=== PATIENT | female | born 1995 | race Caucasian/White ===

== ENCOUNTER 2018-06-18 20:48 | Emergency (ER) | payer SELFPAY ==
[2018-06-18] MEDS ORDERED: Sodium Chloride 0.9% 10 ML Syringe FLUSH PRN (21:27)
[2018-06-18] MEDS ORDERED: Sodium Chloride 0.9% 500 ML IV ONE (21:28)
[2018-06-18] MEDS ORDERED: Metoclopramide 10 MG/2 ML SDV IVPUSH ONE (21:28)
[2018-06-18] MEDS ORDERED: Acetaminophen 325 MG Tab PO ONE (21:28)
--- NOTE | 2018-06-18 22:26 | EDM.PDOC ---
ED HPI GENERAL MEDICAL PROBLEM - General Chief Complaint: Headache Stated Complaint: HEADACHE/KEEPS BLACKING OUT Time Seen by Provider: 06/18/18 21:10 Source of Information: Reports: Patient, RN Notes Reviewed - History of Present Illness INITIAL COMMENTS - FREE TEXT/NARRATIVE: 22 year old female comes in with sx of intermitent dizzy spells that have been going on for about 1 year. she has had several in the last few day. Also has low abd/pelvic discomfort, decreased appetite. LMP about 8 to 10 days ago. Has had mild spotting the last few days. Mild voiding frequency and dysuria. has been nauseated, no recent vomiting or diarrhea. Also has moderate generalized nonthrobbing Jones. No recent cough, fever, chills. Headache Pain Score (Numeric/FACES): 8 - Related Data Allergies Allergy/AdvReac Type Severity Reaction Status Date / Time No Known Allergies Allergy Verified 06/18/18 20:55 Home Meds: Home Meds Aspirin/Acetaminophen/Caffeine [Migraine Formula Caplet] 1 tab PO ONCALL PRN 08/03 [History] Past Medical History - Past Health History Medical/Surgical History: Denies Medical/Surgical History [employer] History: Reports: Social & Family History - Tobacco Use Smoking Status *Q: Current Every Day Smoker Years of Tobacco use: 4 Packs/Tins Daily: 0.2 - Recreational Drug Use Recreational Drug Use: No ED ROS GENERAL - Review of Systems Review Of Systems: See Below Constitutional: Denies: Fever, Chills, Diaphoresis HEENT: Denies: Rhinitis, Sinus Problem, Throat Pain Respiratory: Denies: Shortness of Breath, Wheezing Cardiovascular: Reports: Lightheadedness. Denies: Chest Pain, Palpitations GI/Abdominal: Reports: Abdominal Pain, Decreased Appetite, Nausea. Denies: Diarrhea, Vomiting Musculoskeletal: Reports: No Symptoms Skin: Reports: No Symptoms Neurological: Reports: Dizziness, Headache. Denies: Trouble Speaking, Difficulty Walking, Weakness ED EXAM, GI/ABD - Physical Exam Exam: See Below General Appearance: Alert, No Apparent Distress Eyes: Bilateral: Normal Appearance Throat/Mouth: Normal Inspection, Normal Oropharynx Head: Atraumatic. No: Facial Swelling Neck: Supple, Full Range of Motion Respiratory/Chest: No Respiratory Distress, Lungs Clear, Normal Breath Sounds Cardiovascular: Regular Rate, Rhythm GI/Abdominal Exam: Soft, Tender (very mild diffuse tenderness lower abd more on the left). No: Guarding, Rebound Back Exam: No: CVA Tenderness (L), CVA Tenderness (R) Extremities: Normal Inspection, Normal Range of Motion Neurological: Alert, Oriented, No Motor/Sensory Deficits Skin Exam: Warm, Dry, Normal Color Course - Vital Signs Last Recorded V/S: Last Vital Signs Temp 98.0 F 06/18/18 20:56 Pulse 97 06/18/18 20:56 Resp 18 06/18/18 20:56 BP 128/74 06/18/18 20:56 Pulse Ox 100 06/18/18 20:56 - Orders/Labs/Meds Orders: Active Orders 24 hr Category Date Time Status Holter Monitor 48 Hours [] .PRN Care 06/18/18 22:35 Active Peripheral IV Care [] . DIRECTED Care 06/18/18 21:28 Active Ketorolac [Toradol] Med 06/18/18 22:45 Active 30 mg IVPUSH ONETIME Sodium Chloride 0.9% [Saline Flush] Med 06/18/18 21:27 Active 10 ml FLUSH ASDIRECTED PRN Peripheral IV Insertion Adult [OM.PC] Stat Oth 06/18/18 21:28 Ordered Medication Orders Ketorolac Tromethamine (Toradol) 30 mg IVPUSH ONETIME [facility] Last Admin: 06/18/18 22:45 Dose: 30 mg Sodium Chloride (Saline Flush) 10 ml FLUSH ASDIRECTED PRN PRN Reason: Keep Vein Open Last Admin: 06/18/18 21:57 Dose: 10 ml Labs: Laboratory Tests 06/18/18 06/18/18 06/18/18 Range/Units 21:45 21:45 21:53 WBC 7.54 (3.98-10.04) K/mm3 RBC 5.36 H (3.98-5.22) M/mm3 Hgb 14.6 (11.2-15.7) gm/L Hct 45.0 H (34.1-44.9) % MCV 84.0 (79.4-94.8) fl MCH 27.2 (25.6-32.2) pg MCHC 32.4 (32.2-35.5) g/dl RDW Std Deviation 49.3 H (36.4-46.3) fL Plt Count 272 (182-369) K/mm3 MPV 10.9 (9.4-12.3) fl Neut % (Auto) 50.4 (34.0-71.1) % Lymph % (Auto) 39.8 (19.3-51.7) % [place] % (Auto) 8.1 (4.7-12.5) % Eos % (Auto) 1.3 (0.7-5.8) Baso % (Auto) 0.3 (0.1-1.2) % Neut # (Auto) 3.80 (1.56-6.13) K/mm3 Lymph # (Auto) 3.00 (1.18-3.74) K/mm3 [place] # (Auto) 0.61 H (0.24-0.36) K/mm3 Eos # (Auto) 0.10 (0.04-0.36) K/mm3 Baso # (Auto) 0.02 (0.01-0.08) K/mm3 Sodium 143 (136-145) mEq/L Potassium 4.3 (3.5-5.1) mEq/L Chloride 105 (98-107) mEq/L Carbon Dioxide 29 (21-32) mEq/L Anion Gap 13.3 (5-15) BUN 11 (7-18) mg/dL Creatinine 1.0 (0.55-1.02) mg/dL Est Cr Clr Drug Dosing 75.83 mL/min Estimated GFR (MDRD) > 60 (>60) mL/min BUN/Creatinine Ratio 11.0 L (14-18) Glucose 85 (74-106) mg/dL Calcium 9.4 (8.5-10.1) mg/dL Total Bilirubin 0.2 (0.2-1.0) mg/dL AST 28 (15-37) U/L ALT 40 (14-59) U/L Alkaline Phosphatase 83 (46-116) U/L Total Protein 7.4 (6.4-8.2) g/dl Albumin 3.6 (3.4-5.0) g/dl Globulin 3.8 gm/dL Albumin/Globulin Ratio 1.0 (1-2) HCG, Qual (NEGATIVE) Urine Color Yellow (Yellow) Urine Appearance Clear (Clear) Urine pH 7.0 (5.0-8.0) Ur Specific [place] 1.020 (1.005-1.030) Urine Protein Trace H (Negative) Urine Glucose (UA) Negative (Negative) Urine Ketones Negative (Negative) Urine Occult Blood Negative (Negative) Urine Nitrite Negative (Negative) Urine Bilirubin Negative (Negative) Urine Urobilinogen 0.2 (0.2-1.0) Ur Leukocyte Esterase Negative (Negative) Urine RBC 0-5 (0-5) /hpf Urine WBC 0-5 (0-5) /hpf Ur Epithelial Cells 0-5 (0-5) /hpf Urine Bacteria Rare (FEW) /hpf Urine Mucus Not seen (FEW) /hpf 06/18/18 Range/Units 21:53 WBC (3.98-10.04) K/mm3 RBC (3.98-5.22) M/mm3 Hgb (11.2-15.7) gm/L Hct (34.1-44.9) % MCV (79.4-94.8) fl MCH (25.6-32.2) pg MCHC (32.2-35.5) g/dl RDW Std Deviation (36.4-46.3) fL Plt Count (182-369) K/mm3 MPV (9.4-12.3) fl Neut % (Auto) (34.0-71.1) % Lymph % (Auto) (19.3-51.7) % [place] % (Auto) (4.7-12.5) % Eos % (Auto) (0.7-5.8) Baso % (Auto) (0.1-1.2) % Neut # (Auto) (1.56-6.13) K/mm3 Lymph # (Auto) (1.18-3.74) K/mm3 [place] # (Auto) (0.24-0.36) K/mm3 Eos # (Auto) (0.04-0.36) K/mm3 Baso # (Auto) (0.01-0.08) K/mm3 Sodium (136-145) mEq/L Potassium (3.5-5.1) mEq/L Chloride (98-107) mEq/L Carbon Dioxide (21-32) mEq/L Anion Gap (5-15) BUN (7-18) mg/dL Creatinine (0.55-1.02) mg/dL Est Cr Clr Drug Dosing mL/min Estimated GFR (MDRD) (>60) mL/min BUN/Creatinine Ratio (14-18) Glucose (74-106) mg/dL Calcium (8.5-10.1) mg/dL Total Bilirubin (0.2-1.0) mg/dL AST (15-37) U/L ALT (14-59) U/L Alkaline Phosphatase (46-116) U/L Total Protein (6.4-8.2) g/dl Albumin (3.4-5.0) g/dl Globulin gm/dL Albumin/Globulin Ratio (1-2) HCG, Qual Negative (NEGATIVE) Urine Color (Yellow) Urine Appearance (Clear) Urine pH (5.0-8.0) Ur Specific [place] (1.005-1.030) Urine Protein (Negative) Urine Glucose (UA) (Negative) Urine Ketones (Negative) Urine Occult Blood (Negative) Urine Nitrite (Negative) Urine Bilirubin (Negative) Urine Urobilinogen (0.2-1.0) Ur Leukocyte Esterase (Negative) Urine RBC (0-5) /hpf Urine WBC (0-5) /hpf Ur Epithelial Cells (0-5) /hpf Urine Bacteria (FEW) /hpf Urine Mucus (FEW) /hpf Meds: Medications Generic Name Dose Route Start Last Admin Trade Name Freyamel PRN Reason Stop Dose Admin Ketorolac Tromethamine 30 mg 06/18/18 22:45 06/18/18 22:45 Toradol IVPUSH 30 mg ONETIME [facility] Administration Sodium Chloride 10 ml 06/18/18 21:27 06/18/18 21:57 Saline Flush FLUSH 10 ml ASDIRECTED PRN Administration Keep Vein Open Discontinued Medications Generic Name Dose Route Start Last Admin Trade Name Freyamel PRN Reason Stop Dose Admin Acetaminophen 975 mg 06/18/18 21:28 06/18/18 21:56 Tylenol PO 06/18/18 21:29 975 mg NOW ONE Administration Sodium Chloride 500 mls @ 999 mls/hr 06/18/18 21:28 06/18/18 21:56 Normal Saline IV 06/18/18 21:58 999 mls/hr .BOLUS ONE Administration Metoclopramide HCl 5 mg 06/18/18 21:28 06/18/18 21:56 Reglan IVPUSH 06/18/18 21:29 5 mg ONETIME ONE Administration - Re-Assessments/Exams Free Text/Narrative Re-Assessment/Exam: 06/18/18 22:56 Labs did come back normal, UA preg. test normal. cardiac moniter shows NSR, no ectopy. She feels better after 1/2 liter NS, tylenol, reglan. Will also give torodol IV and send home with 48 holter moniter. Departure - Departure Time of Disposition: 22:46 Disposition: Home, Self-Care 01 Condition: Fair Clinical Impression: Near syncope Abdominal pain Qualifiers: Abdominal location: lower abdomen, unspecified Qualified Code(s): R10.30 - Lower abdominal pain, unspecified Headache Qualifiers: Headache type: unspecified Headache chronicity pattern: acute headache - Discharge Information Referrals: PCP,None [Primary Care Provider] - Forms: ED Department Discharge Additional Instructions: Your lab work including UA this evening was normal. 48 hour holter moniter to check for possible cardiac rythm disturbance, Drink plenty of water to maintain hydration. If you do have a dizzy spell and feel like passing out get your head down or lie down so you don't pass out. Follow up with one of our regular medical providers in about 5 to 7 days for complete physical exam, results of 48 hour holter moniter, further evaluation, treatment as needed. Return to ED if symptoms worsening in any way. - My Orders Last 24 Hours: My Active Orders 06/18/18 21:27 Sodium Chloride 0.9% [Saline Flush] 10 ml FLUSH ASDIRECTED PRN 06/18/18 21:28 Peripheral IV Care [RC] . DIRECTED Peripheral IV Insertion Adult [OM.PC] Stat 06/18/18 22:35 Holter Monitor 48 Hours [RC] .PRN 06/18/18 22:45 Ketorolac [Toradol] 30 mg IVPUSH ONETIME - Assessment/Plan Last 24 Hours: My Active Orders 06/18/18 21:27 Sodium Chloride 0.9% [Saline Flush] 10 ml FLUSH ASDIRECTED PRN 06/18/18 21:28 Peripheral IV Care [RC] . DIRECTED Peripheral IV Insertion Adult [OM.PC] Stat 06/18/18 22:35 Holter Monitor 48 Hours [RC] .PRN 06/18/18 22:45 Ketorolac [Toradol] 30 mg IVPUSH ONETIME
[2018-06-18] MEDS ORDERED: Ketorolac 30 MG/ML SDV IVPUSH SCH (22:45)
== END 2018-06-18 23:06 | disposition home or self-care (01) ==
LOC: JD.ED 20:48
DX: R55 Syncope and collapse (principal); R51 Headache; R10.32 Left lower quadrant pain; F17.210 Nicotine dependence, cigarettes, uncomplicated
CPT/HCPCS: 36415; 80053; 81001; 84703; 85025; 93225; 93226; 96361; 96374; 96375; 99284; A9270; J1885; J2765; J7040

== ENCOUNTER 2019-05-27 15:11 | Emergency (ER) | payer BC ==
[2019-05-27] MEDS ORDERED: Ketorolac 60 MG/2 ML SDV IM ONE (17:08)
--- NOTE | 2019-05-27 17:17 | EDM.PDOC ---
ED HPI GENERAL MEDICAL PROBLEM - General Chief Complaint: ENT Problem Stated Complaint: TOOTHACHE Time Seen by Provider: 05/27/19 15:58 Source of Information: Reports: Patient History Limitations: Reports: No Limitations - History of Present Illness INITIAL COMMENTS - FREE TEXT/NARRATIVE: Patient is a 23-year-old female who presents with complaints of left upper jaw pain and a broken tooth. States she has had the pain for "a couple weeks ". She states that her wisdom tooth is coming in and the pressure from that tooth broke the tooth next to it. States that she will be calling around to the morning try to get an appointment with a dentist either [place] or in [place]. She denies any fever, chills, nausea, or vomiting. Treatments FURNACE ATTENDANT: Reports: Other (see below) Other Treatments FURNACE ATTENDANT: aleve Left Upper Jaw Pain Score (Numeric/FACES): 10 - Related Data Allergies Allergy/AdvReac Type Severity Reaction Status Date / Time No Known Allergies Allergy Verified 05/27/19 15:59 Home Meds: Home Meds Acetaminophen with Codeine [Tylenol with Codeine #3 Tablet] 1 each PO Q4H PRN # 10 tablet 05/27/19 [Rx] Penicillin V Potassium [Veetids] 500 mg PO Q6H 10 Days #40 tab 05/27/19 [Rx] Past Medical History - Past Health History Medical/Surgical History: Denies Medical/Surgical History [employer] History: Reports: Social & Family History - Tobacco Use Smoking Status *Q: Current Every Day Smoker Years of Tobacco use: 5 Packs/Tins Daily: 0.4 Used Tobacco, but Quit: No - Caffeine Use Caffeine Use: Reports: Coffee - Recreational Drug Use Recreational Drug Use: No ED ROS ENT - Review of Systems Review Of Systems: Comprehensive ROS is negative, except as noted in HPI. ED EXAM, ENT - Physical Exam Exam: See Below Exam Limited By: No Limitations General Appearance: Alert, WD/WN, No Apparent Distress Mouth/Throat: Normal Inspection, Normal Gums, Normal Lips, Normal Oropharynx, Dental Pain, Other (posterior aspect of tooth #2 broken. Pt has left facial tenderness). No: Gum Swelling Head: Atraumatic, Normocephalic Neck: Normal Inspection, Supple, Non-Tender, Full Range of Motion Respiratory/Chest: No Respiratory Distress, Lungs Clear, Normal Breath Sounds, No Accessory Muscle Use, Chest Non-Tender Cardiovascular: Normal Peripheral Pulses, Regular Rate, Rhythm, No Edema, No Gallop, No JVD, No Murmur, No Rub Neurological: Alert, Oriented, CN II-XII Intact, Normal Cognition, Normal Gait, Normal Reflexes, No Motor/Sensory Deficits Psychiatric: Normal Affect, Normal Mood Skin: Warm, Dry, Intact, Normal Color, No Rash Course - Vital Signs Last Recorded V/S: Last Vital Signs Temp 98.9 F 05/27/19 16:00 Pulse 80 05/27/19 16:00 Resp 16 05/27/19 16:00 BP 109/58 L 05/27/19 16:00 Pulse Ox 99 05/27/19 16:00 - Orders/Labs/Meds Orders: Active Orders 24 hr Category Date Time Status Ketorolac [Toradol] Med 05/27/19 17:08 Once 60 mg IM ONETIME ONE Departure - Departure Time of Disposition: 17:12 Disposition: Home, Self-Care 01 Condition: Fair Clinical Impression: Dental caries - Discharge Information *PRESCRIPTION DRUG MONITORING PROGRAM REVIEWED*: Yes *COPY OF PRESCRIPTION DRUG MONITORING REPORT IN PATIENT JUSTINA: No Prescriptions: Acetaminophen with Codeine [Tylenol with Codeine #3 Tablet] 1 each PO Q4H PRN # 10 tablet PRN Reason: Pain Penicillin V Potassium [Veetids] 500 mg PO Q6H 10 Days #40 tab Instructions: Preventive Dental Care, Adult Referrals: PCP,None [Primary Care Provider] - Additional Instructions: You were seen in the emergency department today for left-sided jaw and tooth pain. You received an injection of Toradol while in the ER. A prescription for penicillin V and Tylenol 3's have been sent to [facility]. Uses medications as prescribed. Recommend that you take ibuprofen 600 mg every 6 hours for pain. For pain not relieved by the ibuprofen, you may use the Tylenol 3 that were prescribed. Recommend that you call for seen tomorrow morning to get an appointment with the dentist as this is the only thing that will completely fix the problem. If you should experience any worsening symptoms, please not hesitate to return to the emergency department. Sepsis Event Note - Evaluation Sepsis Screening Result: No Definite Risk - Focused Exam Vital Signs: Vital Signs Temp Pulse Resp BP Pulse Ox 05/27/19 16:00 98.9 F 80 16 109/58 L 99 Date Exam was Performed: 05/27/19 Time Exam was Performed: 17:09 - My Orders Last 24 Hours: My Active Orders 05/27/19 17:08 Ketorolac [Toradol] 60 mg IM ONETIME ONE - Assessment/Plan Last 24 Hours: My Active Orders 05/27/19 17:08 Ketorolac [Toradol] 60 mg IM ONETIME ONE
== END 2019-05-27 17:25 | disposition home or self-care (01) ==
LOC: JD.ED 15:11
DX: K02.9 Dental caries, unspecified (principal); F17.210 Nicotine dependence, cigarettes, uncomplicated
CPT/HCPCS: 96372; 99282; J1885; 99283

== ENCOUNTER 2019-10-17 10:05 | Emergency (ER) | payer BC ==
--- NOTE | 2019-10-17 10:31 | EDM.PDOCBH ---
ED HPI GENERAL MEDICAL PROBLEM - General Chief Complaint: Behavioral/Psych Stated Complaint: SUICIDAL IDEATIONS/ATTEMPTS Time Seen by Provider: 10/17/19 10:29 - History of Present Illness INITIAL COMMENTS - FREE TEXT/NARRATIVE: 24-year-old female presents the emergency room with suicidal thoughts. Patient was seen over at [facility] and sent here by the provider that saw her for evaluation, and stating the patient would like inpatient treatment. Patient is been having suicidal thoughts. She had a vague attempt about a month ago but was not seen for this. Patient tried to slit her wrist but her friend stopped her. At this time the patient does not have a suicidal plan. Patient states she does okay as long as she is with people but when she is by her self the suicidal thoughts come back. The patient does not believe she would actually hurt herself at this time. The patient has been admitted for suicidal thoughts in the distant past approximately a year or so ago. She is not on any depression medications at this time she has taken Xanax as needed for anxiety. Patient denies any ongoing medical issues that she has. She is a 4 para 1 3 miscarriages. 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: Musculoskeletal History: Reports: Other (See Below) Other Musculoskeletal History: hip dysplagia Psychiatric History: Reports: Anxiety, Depression Social & Family History - Tobacco Use Smoking Status *Q: Current Every Day Smoker Years of Tobacco use: 3 Packs/Tins Daily: 0.5 - Caffeine Use Caffeine Use: Reports: Coffee - Recreational Drug Use Recreational Drug Use: No ED ROS GENERAL - Review of Systems Review Of Systems: See Below Constitutional: Reports: No Symptoms HEENT: Reports: No Symptoms Respiratory: Reports: No Symptoms Cardiovascular: Reports: No Symptoms Endocrine: Reports: No Symptoms GI/Abdominal: Reports: No Symptoms : Reports: No Symptoms Musculoskeletal: Reports: No Symptoms Skin: Reports: No Symptoms Neurological: Reports: No Symptoms Psychiatric: Reports: Anxiety, Depression, Suicidal Ideation. Denies: Hallucinations, Homicidal Ideation, Mood Lability Hematologic/Lymphatic: Reports: No Symptoms ED EXAM, BEHAVIORAL HEALTH - Physical Exam Exam: See Below Exam Limited By: No Limitations General Appearance: Alert, No Apparent Distress Eye Exam: Bilateral Eye: Normal Inspection Ears: Normal External Exam, Normal Canal, Hearing Grossly Normal, Normal TMs Nose: Normal Inspection, Normal Mucosa, No Blood Throat/Mouth: Normal Inspection, Normal Lips, Normal Teeth, Normal Gums, Normal Oropharynx, Normal Voice, No Airway Compromise Head: Atraumatic, Normocephalic Neck: Normal Inspection, Supple, Non-Tender, Full Range of Motion. No: Lymphadenopathy (L), Lymphadenopathy (R) Respiratory/Chest: No Respiratory Distress, Lungs Clear, Normal Breath Sounds, No Accessory Muscle Use, Chest Non-Tender Cardiovascular: Normal Peripheral Pulses, Regular Rate, Rhythm, No Edema, No Gallop, No JVD, No Murmur, No Rub GI/Abdominal: Normal Bowel Sounds, Soft, Non-Tender Back Exam: Normal Inspection. No: CVA Tenderness (L), CVA Tenderness (R) Extremities: Normal Inspection, No Pedal Edema Neurological: Alert, Normal Mood/Affect, Normal Cognition Psychiatric: Alert, Normal Cognition, Suicidal Thoughts, Other (Acting fairly normal normal affect, mood no apparent anxiety at this time). No: Suicidal Plan Skin Exam: Warm, Dry, Intact COURSE, BEHAVIORAL HEALTH COMP - Course Vital Signs: Last Vital Signs Temp 37.5 C 10/17/19 10:12 Pulse 81 10/17/19 10:12 Resp 16 10/17/19 10:12 BP 109/70 10/17/19 10:12 Pulse Ox 98 10/17/19 10:12 Orders, Labs, Meds: Laboratory Tests 10/17/19 10/17/19 10/17/19 Range/Units 11:00 11:00 11:15 WBC 7.60 (3.98-10.04) K/mm3 RBC 5.01 (3.98-5.22) M/mm3 Hgb 13.7 (11.2-15.7) gm/dl Hct 42.7 (34.1-44.9) % MCV 85.2 (79.4-94.8) fl MCH 27.3 (25.6-32.2) pg MCHC 32.1 L (32.2-35.5) g/dl RDW Std Deviation 46.5 H (36.4-46.3) fL Plt Count 268 (182-369) K/mm3 MPV 9.8 (9.4-12.3) fl Neut % (Auto) 64.3 (34.0-71.1) % Lymph % (Auto) 27.0 (19.3-51.7) % [place] % (Auto) 7.2 (4.7-12.5) % Eos % (Auto) 1.1 (0.7-5.8) Baso % (Auto) 0.3 (0.1-1.2) % Neut # (Auto) 4.89 (1.56-6.13) K/mm3 Lymph # (Auto) 2.05 (1.18-3.74) K/mm3 [place] # (Auto) 0.55 H (0.24-0.36) K/mm3 Eos # (Auto) 0.08 (0.04-0.36) K/mm3 Baso # (Auto) 0.02 (0.01-0.08) K/mm3 Sodium 140 (136-145) mEq/L Potassium 4.3 (3.5-5.1) mEq/L Chloride 104 (98-107) mEq/L Carbon Dioxide 27 (21-32) mEq/L Anion Gap 13.3 (5-15) BUN 12 (7-18) mg/dL Creatinine 0.8 (0.55-1.02) mg/dL Est Cr Clr Drug Dosing 97.15 mL/min Estimated GFR (MDRD) > 60 (>60) mL/min BUN/Creatinine Ratio 15.0 (14-18) Glucose 65 L (74-106) mg/dL Calcium 9.0 (8.5-10.1) mg/dL Total Bilirubin 0.3 (0.2-1.0) mg/dL AST 31 (15-37) U/L ALT 50 (14-59) U/L Alkaline Phosphatase 67 (46-116) U/L Total Protein 7.3 (6.4-8.2) g/dl Albumin 3.4 (3.4-5.0) g/dl Globulin 3.9 gm/dL Albumin/Globulin Ratio 0.9 L (1-2) TSH 3rd Generation 2.542 (0.358-3.74) uIU/mL Urine Color Light yellow (Yellow) Urine Appearance Clear (Clear) Urine pH 7.0 (5.0-8.0) Ur Specific [place] 1.025 (1.005-1.030) Urine Protein Negative (Negative) Urine Glucose (UA) Negative (Negative) Urine Ketones Negative (Negative) Urine Occult Blood Negative (Negative) Urine Nitrite Negative (Negative) Urine Bilirubin Negative (Negative) Urine Urobilinogen 0.2 (0.2-1.0) Ur Leukocyte Esterase Negative (Negative) Urine HCG, Qual (NEGATIVE) Urine Opiates Screen (KETKWX=576) Ur Buprenorphine Scrn (CUTOFF=10) Ur Oxycodone Screen (GAY9PF=024) Urine Methadone Screen (ZZKDHW=153) Ur Propoxyphene Screen (JVOYNE=974) Ur Barbiturates Screen (JFUAUL=892) Ur Tricyclics Screen (GJWFDL=124) Ur Phencyclidine Scrn (CUTOFF=25) Ur Amphetamine Screen (NHPTRO=597) U Methamphetamines Scrn (MHSHEE=587) U Benzodiazepines Scrn (UZXHCD=176) U Cocaine Metab Screen (VLOAJJ=783) U Marijuana (THC) Screen (CUTOFF=50) Ethyl Alcohol 0.00 (0.00) gm% 10/17/19 10/17/19 Range/Units 11:15 11:15 WBC (3.98-10.04) K/mm3 RBC (3.98-5.22) M/mm3 Hgb (11.2-15.7) gm/dl Hct (34.1-44.9) % MCV (79.4-94.8) fl MCH (25.6-32.2) pg MCHC (32.2-35.5) g/dl RDW Std Deviation (36.4-46.3) fL Plt Count (182-369) K/mm3 MPV (9.4-12.3) fl Neut % (Auto) (34.0-71.1) % Lymph % (Auto) (19.3-51.7) % [place] % (Auto) (4.7-12.5) % Eos % (Auto) (0.7-5.8) Baso % (Auto) (0.1-1.2) % Neut # (Auto) (1.56-6.13) K/mm3 Lymph # (Auto) (1.18-3.74) K/mm3 [place] # (Auto) (0.24-0.36) K/mm3 Eos # (Auto) (0.04-0.36) K/mm3 Baso # (Auto) (0.01-0.08) K/mm3 Sodium (136-145) mEq/L Potassium (3.5-5.1) mEq/L Chloride (98-107) mEq/L Carbon Dioxide (21-32) mEq/L Anion Gap (5-15) BUN (7-18) mg/dL Creatinine (0.55-1.02) mg/dL Est Cr Clr Drug Dosing mL/min Estimated GFR (MDRD) (>60) mL/min BUN/Creatinine Ratio (14-18) Glucose (74-106) mg/dL Calcium (8.5-10.1) mg/dL Total Bilirubin (0.2-1.0) mg/dL AST (15-37) U/L ALT (14-59) U/L Alkaline Phosphatase (46-116) U/L Total Protein (6.4-8.2) g/dl Albumin (3.4-5.0) g/dl Globulin gm/dL Albumin/Globulin Ratio (1-2) TSH 3rd Generation (0.358-3.74) uIU/mL Urine Color (Yellow) Urine Appearance (Clear) Urine pH (5.0-8.0) Ur Specific [place] (1.005-1.030) Urine Protein (Negative) Urine Glucose (UA) (Negative) Urine Ketones (Negative) Urine Occult Blood (Negative) Urine Nitrite (Negative) Urine Bilirubin (Negative) Urine Urobilinogen (0.2-1.0) Ur Leukocyte Esterase (Negative) Urine HCG, Qual Negative (NEGATIVE) Urine Opiates Screen Negative (PNQNBT=080) Ur Buprenorphine Scrn Negative (CUTOFF=10) Ur Oxycodone Screen Negative (EHH6SL=083) Urine Methadone Screen Negative (CRNFJM=716) Ur Propoxyphene Screen Negative (TPMHUQ=994) Ur Barbiturates Screen Negative (GTAMXY=534) Ur Tricyclics Screen Negative (AQOVXX=349) Ur Phencyclidine Scrn Negative (CUTOFF=25) Ur Amphetamine Screen Negative (ZULGFS=714) U Methamphetamines Scrn Negative (TKEVAP=794) U Benzodiazepines Scrn Presumptive positive H (RDXCBB=538) U Cocaine Metab Screen Negative (NYDGWI=392) U Marijuana (THC) Screen Presumptive positive H (CUTOFF=50) Ethyl Alcohol (0.00) gm% Medications Discontinued Medications Generic Name Dose Route Start Last Admin Trade Name Giselle PRN Reason Stop Dose Admin Alprazolam 1 mg 10/17/19 12:58 10/17/19 13:05 Xanax PO 10/17/19 12:59 1 mg ONETIME ONE Administration Lorazepam 1 mg 10/17/19 12:57 Ativan PO 10/17/19 12:58 ONETIME ONE Re-Assessment/Re-Exam: Did discuss the patient's case with Angela at [facility] who thought the patient would be a candidate for the crisis bed. We will notify them when the labs are complete. 12:51 Labs reviewed positive for benzodiazepines she does use as needed Xanax she is also positive for marijuana I have called Angela at [facility] and am awaiting for return call. 13:02 Discussed the situation with Angela. The patient is a little anxious at this time but promises to go right over to [facility] and her significant other promises to take her right over. The patient took her last Xanax this morning I will give them a refill. I also have given her a milligram of Xanax at this time. Departure - Departure Time of Disposition: 13:07 Disposition: Home, Self-Care 01 Clinical Impression: Depressive disorder, Anxiety, Suicidal ideation - Discharge Information Prescriptions: ALPRAZolam [Xanax] 0.5 mg PO Q12H #14 tablet Referrals: PCP,None [Primary Care Provider] - Forms: ED Department Discharge Additional Instructions: Return to the emergency room with any questions problems or worsening symptoms. Go straight to [facility] human services as we agreed you would do. I have refilled your Xanax for 1 week 0.5 mg twice daily this has been sent to [facility] up by [place]. Sepsis Event Note (ED) - Evaluation Sepsis Screening Result: No Definite Risk - Focused Exam Vital Signs: Vital Signs Temp Pulse Resp BP Pulse Ox 10/17/19 10:12 37.5 C 81 16 109/70 98
[2019-10-17] MEDS ORDERED: LORazepam 1 MG Tab PO ONE (12:57)
[2019-10-17] MEDS ORDERED: ALPRAZolam 1 MG Tab PO ONE (12:58)
== END 2019-10-17 13:25 | disposition home or self-care (01) ==
LOC: JD.ED 10:05
DX: F32.9 Major depressive disorder, single episode, unspecified (principal); F41.9 Anxiety disorder, unspecified; F17.210 Nicotine dependence, cigarettes, uncomplicated; Z79.899 Other long term (current) drug therapy
CPT/HCPCS: 36415; 80053; 80306; 80307; 81003; 81025; 84443; 85025; 99284; A9270; 99283

== ENCOUNTER 2020-02-15 18:27 | Emergency (ER) | payer BC ==
[2020-02-15] MEDS ORDERED: Sodium Chloride 0.9% 10 ML Syringe FLUSH PRN (18:47)
--- NOTE | 2020-02-15 19:03 | EDM.PDOC ---
ED HPI GENERAL MEDICAL PROBLEM - General Chief Complaint: INSURANCE PREMIUM AUDITOR Problem Stated Complaint: 16 WEEKS PREG AND BLEEDING Time Seen by Provider: 02/15/20 18:49 Source of Information: Reports: Patient, RN Notes Reviewed History Limitations: Reports: No Limitations - History of Present Illness INITIAL COMMENTS - FREE TEXT/NARRATIVE: Patient is a 24-year-old female who presents to the ED for the evaluation of her lower abdomen cramping and light vaginal bleeding. She is 16 weeks . She notes that she follows with Dr. Garland as her INSURANCE PREMIUM AUDITOR. She states that her last OB appointment on February 12, went well and there were no complications. She states that today she was sitting on her couch, and she began to have some cramping, so she thought that she was may be needing to have a bowel movement she went to the bathroom, and when she went to wipe she had some bright red blood on the toilet paper. This was all at around 6:20 PM. She further denies any fevers or chills, cough or shortness of breath, any urinary issues, or any diarrhea, she states she is usually nauseous due to the but is not nauseated now. She is also not having any vomiting. She is not complaining of any dizziness or lightheadedness. heart tones were found to be 156 bpm on triage. Left Lower Abdomen Pain Score (Numeric/FACES): 4 - Related Data Allergies Allergy/AdvReac Type Severity Reaction Status Date / Time No Known Allergies Allergy Verified 02/15/20 18:43 Home Meds: Home Meds Acetaminophen [Tylenol Extra Strength] 500 mg PO DAILY 02/15/20 [History] Ondansetron [Zofran ODT] 4 mg PO Q4HR PRN 02/15/20 [History] Past Medical History - Past Health History Medical/Surgical History: Denies Medical/Surgical History HEENT History: Reports: Impaired Vision Other HEENT History: glasses INSURANCE PREMIUM AUDITOR History: Reports: : 2 Para: 1 Other INSURANCE PREMIUM AUDITOR History: 2 pregnancies Musculoskeletal History: Reports: Other (See Below) Other Musculoskeletal History: hip dysplagia Psychiatric History: Reports: Anxiety, Depression Social & Family History - Tobacco Use Tobacco Use Status *Q: Former Tobacco User Used Tobacco, but Quit: Yes Month/Year Tobacco Last Used: 09/2019 - Caffeine Use Caffeine Use: Reports: Coffee - Recreational Drug Use Recreational Drug Use: No ED ROS GENERAL - Review of Systems Review Of Systems: Comprehensive ROS is negative, except as noted in HPI. ED EXAM - Physical Exam Exam: See Below Exam Limited By: No Limitations General Appearance: Alert, WD/WN, No Apparent Distress Respiratory/Chest: No Respiratory Distress, Lungs Clear, Normal Breath Sounds, No Accessory Muscle Use, Chest Non-Tender Cardiovascular: Normal Peripheral Pulses, Regular Rate, Rhythm, No Murmur GI/Abdominal Exam: Normal Bowel Sounds, Soft, Non-Tender, No Distention, No Mass Heart Tones: Present Heart Tones per Min: 156 Movement: Not Appreciated Extremities: Normal Inspection, Normal Capillary Refill Neurological: Alert, Oriented, Normal Cognition, No Motor/Sensory Deficits Psychiatric: Normal Affect, Normal Mood Skin Exam: Warm, Dry, Intact, Normal Color, No Rash Course - Vital Signs Last Recorded V/S: Last Vital Signs Temp 98 F 02/15/20 18:38 Pulse 106 H 02/15/20 18:38 Resp 20 02/15/20 18:38 BP 107/66 02/15/20 18:38 Pulse Ox 99 02/15/20 18:38 - Orders/Labs/Meds Orders: Active Orders 24 hr Category Date Time Status Peripheral IV Care [RC] . DIRECTED Care 02/15/20 18:48 Ordered OB Ltd 1 or More Fetus [US] Stat Exams 02/15/20 18:48 Ordered PATIENT RETYPE [BBK] Routine Lab 02/15/20 20:11 Ordered Sodium Chloride 0.9% [Saline Flush] Med 02/15/20 18:47 Ordered 10 ml FLUSH ASDIRECTED PRN Peripheral IV Insertion Adult [OM.PC] Stat Oth 02/15/20 18:48 Ordered Medication Orders Sodium Chloride (Saline Flush) 10 ml FLUSH ASDIRECTED PRN PRN Reason: Keep Vein Open Labs: Laboratory Tests 02/15/20 02/15/20 02/15/20 Range/Units 18:59 19:00 19:00 WBC 11.33 H (3.98-10.04) K/mm3 RBC 4.82 (3.98-5.22) M/mm3 Hgb 13.7 (11.2-15.7) gm/dl Hct 41.0 (34.1-44.9) % MCV 85.1 (79.4-94.8) fl MCH 28.4 (25.6-32.2) pg MCHC 33.4 (32.2-35.5) g/dl RDW Std Deviation 45.6 (36.4-46.3) fL Plt Count 266 (182-369) K/mm3 MPV 10.4 (9.4-12.3) fl Neut % (Auto) 83.7 H (34.0-71.1) % Lymph % (Auto) 12.1 L (19.3-51.7) % [place] % (Auto) 3.4 L (4.7-12.5) % Eos % (Auto) 0.5 L (0.7-5.8) Baso % (Auto) 0.1 (0.1-1.2) % Neut # (Auto) 9.48 H (1.56-6.13) K/mm3 Lymph # (Auto) 1.37 (1.18-3.74) K/mm3 [place] # (Auto) 0.39 H (0.24-0.36) K/mm3 Eos # (Auto) 0.06 (0.04-0.36) K/mm3 Baso # (Auto) 0.01 (0.01-0.08) K/mm3 Urine Color Yellow (Yellow) Urine Appearance Clear (Clear) Urine pH 7.0 (5.0-8.0) Ur Specific [place] 1.015 (1.005-1.030) Urine Protein Negative (Negative) Urine Glucose (UA) Negative (Negative) Urine Ketones Negative (Negative) Urine Occult Blood Trace-lysed H (Negative) Urine Nitrite Negative (Negative) Urine Bilirubin Negative (Negative) Urine Urobilinogen 0.2 (0.2-1.0) Ur Leukocyte Esterase Trace H (Negative) Urine RBC 0-5 (0-5) /hpf Urine WBC 0-5 (0-5) /hpf Ur Epithelial Cells 0-5 (0-5) /hpf Urine Bacteria Not seen (FEW) /hpf Urine Mucus Not seen (FEW) /hpf Blood Type O POSITIVE Gel Antibody Screen Negative Meds: Medications Generic Name Dose Route Start Last Admin Trade Name Freq PRN Reason Stop Dose Admin Sodium Chloride 10 ml 02/15/20 18:47 Saline Flush FLUSH ASDIRECTED PRN Keep Vein Open - Re-Assessments/Exams Free Text/Narrative Re-Assessment/Exam: 02/15/20 19:04 Patient presents to the ED for evaluation of her abdomen pain and vaginal bleeding. We were able to get heart tones. Transabdominal ultrasound be obtained for evaluation of the vaginal bleeding. Urinalysis, CBC, type and screen along with IV to be placed in case we should need this on a more urgent basis. Patient has a vital stables at this time, there is no major indication at this time for any further deterioration. 02/15/20 20:40 Labs are unremarkable. The patient's ultrasound demonstrates a single live intrauterine gestation, internal os is closed at cervical length measures 4.2 cm. Appropriate amniotic fluid index 11.7 cm. Posterior fundal positioning of the placenta. No evidence for abruption. Estimated gestational age based on today's ultrasound is 16 weeks 2 days, estimated date of delivery based on today's ultrasound is July 30, 2020, today's estimated weight is 142 g. There was some contraction of the lower uterine segment. Previa was not accurately assessed for I did go over these results with Dr. Garland, who consequently is her OB. She states that the patient should just be on pelvic rest, and follow-up with her early next week. Patient is okay with this plan at this time. She will be discharged home with these general recommendations. Departure - Departure Time of Disposition: 20:42 Disposition: Home, Self-Care 01 Condition: Good Clinical Impression: Vaginal bleeding in patient at less than 20 weeks gestation - Discharge Information *PRESCRIPTION DRUG MONITORING PROGRAM REVIEWED*: No *COPY OF PRESCRIPTION DRUG MONITORING REPORT IN PATIENT JUSTINA: No Instructions: Vaginal Bleeding During , Second Trimester, [id number] Referrals: Wendy Omer MD [Primary Care Provider] - Forms: ED Department Discharge Additional Instructions: You were evaluated in the ER today regarding your abdominal pain/vaginal bleeding in . You did have some labs drawn, and these were within normal limits, your blood type is A+. Your ultrasound demonstrated a normal fetus with a heart rate of 152 bpm. Recommend that you do not lift anything heavier than a gallon of milk (5 lbs), do not engage in sexual activities, try to get as much pelvic rest as possible for the next few days. Please try not to exert yourself, rest and relax, and take it easy. If you are bleeding through more than 1-2 maxi pads every couple hours, this would be cause for concern to return to the ER for immediate management. Please follow up with your INSURANCE PREMIUM AUDITOR sometime early next week, you should call Dr. Omer's office Monday to obtain an appointment for further evaluation and to make sure everything is getting better as expected. Please return to the ED at any time if your symptoms change or worsen. Sepsis Event Note (ED) - Evaluation Sepsis Screening Result: No Definite Risk - Focused Exam Vital Signs: Vital Signs Temp Pulse Resp BP Pulse Ox 02/15/20 18:38 98 F 106 H 20 107/66 99 - My Orders Last 24 Hours: My Active Orders 02/15/20 18:47 Sodium Chloride 0.9% [Saline Flush] 10 ml FLUSH ASDIRECTED PRN 02/15/20 18:48 Peripheral IV Care [RC] . DIRECTED OB Ltd 1 or More Fetus [US] Stat Peripheral IV Insertion Adult [OM.PC] Stat 02/15/20 20:11 PATIENT RETYPE [BBK] Routine - Assessment/Plan Last 24 Hours: My Active Orders 02/15/20 18:47 Sodium Chloride 0.9% [Saline Flush] 10 ml FLUSH ASDIRECTED PRN 02/15/20 18:48 Peripheral IV Care [RC] . DIRECTED OB Ltd 1 or More Fetus [US] Stat Peripheral IV Insertion Adult [OM.PC] Stat 02/15/20 20:11 PATIENT RETYPE [BBK] Routine
--- NOTE | 2020-02-17 09:52 | US ---
"Exam: US , Limited Exam date and time: 02/15/2020 7:52 PM Age: 24 years old Clinical indication: Lmp or gestational age (in weeks): Working king not provided; Antepartum complications; Bleeding and other: Cramping; TECHNIQUE: Imaging protocol: Real-time ultrasound of the maternal uterus with image documentation. Exam focused on the clinical indication. COMPARISON: No relevant prior studies available. FINDINGS: Gestation: There is a single live intrauterine gestation. heart rate: heart rate is present measuring 152 bpm. Placenta: Posterior fundal positioning of the placenta. No evidence for abruption. Amniotic fluid index: The amniotic fluid index is 11.7 cm within normal limits. BIOMETRY: Gestational age (AUA): Estimated gestational age based on today's ultrasound is sixteen weeks 2 days. Estimated due date (AUA): The estimated date of delivery based on today's ultrasound is July 30, 2020. Estimated weight: Today's estimated weight is 142 g. Biparietal diameter: Biparietal diameter 3.5 Head circumference: Head circumference 12.3 Abdominal circumference: Abdominal circumference 9.9 Femur length: Femur length 2 MATERNAL: Uterus: There was a contraction of the lower uterine segment. Previa not accurately assessed for. Cervix: Internal os is closed, cervical length measures 4.2 cm. [email or web address] | Final Radiology Report CONFIDENTIALITY STATEMENT This report is intended only for use by the referring physician, and only in accordance with law. If you received this in error, call [phone]. Page 2 of 2 IMPRESSION: 1. There is a single live intrauterine gestation. 2. Internal os is closed, cervical length measures 4.2 cm. 3. The amniotic fluid index is 11.7 cm within normal limits. 4. Posterior fundal positioning of the placenta. No evidence for abruption. 5. Estimated gestational age based on today's ultrasound is sixteen weeks 2 days. 6. The estimated date of delivery based on today's ultrasound is July 30, 2020. 26%. 7. Today's estimated weight is 142 g. 8. There was a contraction of the lower uterine segment. Previa not accurately assessed for. Thank you for allowing us to participate in the care of your patient. Dictated and Authenticated by: Christiano Fields MD 02/15/2020 9:25 PM Central Time ([place] & [place]) LETTY"
== END 2020-02-15 20:55 | disposition home or self-care (01) ==
LOC: JD.ED 18:27
DX: O20.9 Hemorrhage in early pregnancy, unspecified (principal); Z87.891 Personal history of nicotine dependence; Z3A.16 16 weeks gestation of pregnancy
CPT/HCPCS: 36415; 76815; 76815-26; 81001; 85025; 86850; 86900; 86901; 99284-25

== ENCOUNTER 2020-08-02 22:56 | Inpatient (IN) | payer BC ==
[2020-08-02] MEDS ORDERED: Sodium Chloride 0.9% 10 ML Syringe FLUSH PRN (23:34)
[2020-08-02] MEDS ORDERED: Lidocaine 1% 50 ML MDV INJECT ONE (23:34)
[2020-08-02] MEDS ORDERED: Nalbuphine 10 MG/1 ML Vial IVPUSH PRN (23:34)
[2020-08-02] MEDS ORDERED: Ondansetron 4 MG/2 ML SDV IVPUSH PRN (23:34)
[2020-08-02] MEDS ORDERED: Lactated Ringers 1,000 ML IV SCH (23:45)
[2020-08-02] MEDS ORDERED: Oxytocin/Lactated Ringers 10 UNIT/1,000 ML BAG IV SCH (23:45)
--- NOTE | 2020-08-03 03:00 | PCM.LDHP ---
L&D History of Present Illness - General Date of Service: 08/03/20 Admit Problem/Dx: Patient Status Order with Admit Dx/Problem 08/02/20 23:05 Patient Status [ADT] Routine Admission Diagnosis/Problem Admission Diagnosis/Problem Labor without complication Source of Information: Patient - History of Present Illness Introduction:: 24 year old presented at 40w1 with spontaneous rupture of membranes and contractions. Had been closed in clinic on the and is now 3-4 cm. PNC with myself without complications. Regular care starting with a confirmation visit at 6 weeks. 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 OB/BYN History: 2 pregnancies Musculoskeletal History: Reports: Other (See Below) Other Musculoskeletal History: hip dysplagia Psychiatric History: Reports: Anxiety, Depression Endocrine/Metabolic History: Reports: Diabetes, Gestational, Other (See Below) Other Endocrine/Metabolic 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 Hematologic History: Reports: Anemia - Past Surgical History Endocrine Surgical History: Reports: None Musculoskeletal Surgical History: Reports: None Social & Family History - Family History Family Medical History: No Pertinent Family History - Tobacco Use Tobacco Use Status *Q: Former Tobacco User Years of Tobacco use: 2 Packs/Tins Daily: 0.5 Used Tobacco, but Quit: Yes Month/Year Tobacco Last Used: 11/2019 Second Hand Smoke Exposure: No - Caffeine Use Caffeine Use: Reports: None - Recreational Drug Use Recreational Drug Use: Yes Drug Use in Last 12 Months: Yes Recreational Drug Type: Reports: Marijuana/Hashish, Methamphetamine Recreational Drug Use Frequency: Not Used In Over 6 Months Recreational Drug Last Use: 08/2019 H&P Review of Systems - Review of Systems: Review Of Systems: Comprehensive ROS is negative, except as noted in HPI. General: Reports: No Symptoms HEENT: Reports: No Symptoms Pulmonary: Reports: No Symptoms Cardiovascular: Reports: No Symptoms Gastrointestinal: Reports: No Symptoms Genitourinary: Reports: No Symptoms Musculoskeletal: Reports: No Symptoms Skin: Reports: No Symptoms Psychiatric: Reports: No Symptoms Neurological: Reports: No Symptoms Hematologic/Lymphatic: Reports: No Symptoms Immunologic: Reports: No Symptoms L&D Exam - Exam Exam: See Below - Vital Signs Vital Signs: Last Vital Signs Temp 37.0 C 08/02/20 23:11 Pulse 126 H 08/02/20 23:11 Resp 18 08/02/20 23:11 BP 103/67 08/02/20 23:11 Pulse Ox 100 08/02/20 23:11 Weight: 70.579 kg - OB Specific Fundal Height In cm: 40 Contraction Intensity: Moderate to Strong Movement: Active Heart Tones: Present Heart Rate (FHR) Variability: Moderate (6-25 bmp) Presentation: Vertex - French Score French Score Cervix Position: Midposition French Score Consistency: Medium French Score Effacement: >80% French Score Dilation: 3-4 cm French Score Infant's Station: -3 French Score Total: 7 - Exam General: Alert, Oriented HEENT: Conjunctiva Clear, EACs Clear, EOMI, Hearing Intact, PERRLA Neck: Trachea Midline Lungs: Normal Respiratory Effort Cardiovascular: Regular Rate, Regular Rhythm GI/Abdominal Exam: Normal Bowel Sounds, Soft, Non-Tender, No Mass, Pelvis Stable Genitourinary: Normal speculum exam, Other (see cervical exam) Back Exam: Normal Inspection Extremities: Normal Inspection, Normal Range of Motion, Non-Tender Skin: Warm, Dry, Intact Neurological: Cranial Nerves Intact, Reflexes Equal Bilateral Psychiatric: Alert, Normal Affect, Normal Mood - Patient Data Lab Results Last 24 hrs: Laboratory Results - last 24 hr 08/02/20 08/02/20 08/03/20 Range/Units 23:23 23:50 01:45 WBC 13.10 H (3.98-10.04) K/mm3 RBC 4.50 (3.98-5.22) M/mm3 Hgb 10.0 L D (11.2-15.7) gm/dl Hct 33.0 L (34.1-44.9) % MCV 73.3 L D (79.4-94.8) fl MCH 22.2 L (25.6-32.2) pg MCHC 30.3 L (32.2-35.5) g/dl RDW Std Deviation 43.7 (36.4-46.3) fL Plt Count 235 (182-369) K/mm3 MPV 10.3 (9.4-12.3) fl Neut % (Auto) 75.6 H (34.0-71.1) % Lymph % (Auto) 16.3 L (19.3-51.7) % [place] % (Auto) 6.9 (4.7-12.5) % Eos % (Auto) 0.5 L (0.7-5.8) Baso % (Auto) 0.2 (0.1-1.2) % Neut # (Auto) 9.90 H (1.56-6.13) K/mm3 Lymph # (Auto) 2.14 (1.18-3.74) K/mm3 [place] # (Auto) 0.91 H (0.24-0.36) K/mm3 Eos # (Auto) 0.06 (0.04-0.36) K/mm3 Baso # (Auto) 0.02 (0.01-0.08) K/mm3 Manual Slide Review Abnormal smear Urine Opiates Screen Negative (HTYNWO=764) Ur Buprenorphine Scrn Negative (CUTOFF=10) Ur Oxycodone Screen Negative (KCO8JG=735) Urine Methadone Screen Negative (FFPGHC=329) Ur Propoxyphene Screen Negative (QKHWZQ=516) Ur Barbiturates Screen Negative (KNQEJU=636) Ur Tricyclics Screen Negative (ONDHPZ=555) Ur Phencyclidine Scrn Negative (CUTOFF=25) Ur Amphetamine Screen Negative (ZYTPRD=536) U Methamphetamines Scrn Negative (PIXEIP=402) U Benzodiazepines Scrn Negative (FJYSVX=434) U Cocaine Metab Screen Negative (SBAXOV=491) U Marijuana (THC) Screen Presumptive positive H (CUTOFF=50) SARS-CoV-2 RNA (ABEL) Negative (NEGATIVE) Result Diagrams: 08/02/20 23:50 Problem List Initiated/Reviewed/Updated: Yes Orders Last 24hrs: Active Orders 24 hr Category Date Time Status Patient Status [ADT] Routine ADT 08/02/20 23:05 Active Activity as Tolerated [RC] PFP Care 08/02/20 23:34 Active Communication Order [RC] ASDIRECTED Care 08/02/20 23:34 Active Heart Tones [RC] ASDIRECTED Care 08/02/20 23:35 Active Notify Provider [RC] PFP Care 08/02/20 23:34 Active Notify Provider [RC] PRN Care 08/02/20 23:34 Active Peripheral IV Care [RC] . DIRECTED Care 08/02/20 23:35 Active Up ad Iva [RC] ASDIRECTED Care 08/02/20 23:06 Active Vaginal Exam [RC] PRN Care 08/02/20 23:07 Active Vital Signs [RC] 09,15,21,03 Care 08/02/20 23:05 Active Regular Diet [DIET] Diet 08/02/20 Breakfast Active BLOOD BANK HOLD SPECIMEN [BBK] Stat Lab 08/02/20 23:34 Ordered RAPID PLASMA REAGIN,RPR [CHEM] Routine Lab 08/02/20 23:50 Received Lactated Ringers [Ringers, Lactated] 1,000 ml Med 08/02/20 23:45 Active IV ASDIRECTED Nalbuphine [Nubain] Med 08/02/20 23:34 Active 10 mg IVPUSH Q2H PRN Ondansetron [Zofran] Med 08/02/20 23:34 Active 4 mg IVPUSH Q4H PRN Oxytocin/Lactated Ringers [Pitocin in LR 10 Units/1,000 Med 08/02/20 23:45 Active ML] 10 unit in 1,000 ml IV .CONTINUOUS Sodium Chloride 0.9% [Saline Flush] Med 08/02/20 23:34 Active 10 ml FLUSH ASDIRECTED PRN Electronic Heart Tones Ext w TOCO [WOMSER] Oth 08/02/20 23:34 Ordered Routine Electronic Heart Tones Internal [WOMSER] Per Unit Oth 08/02/20 23:34 Ordered Routine Peripheral IV Insertion Adult [OM.PC] Routine Oth 08/02/20 23:34 Ordered Resuscitation Status Routine Resus Stat 08/02/20 23:05 Ordered Medication Orders Lactated Ringer's (Ringers, Lactated) 1,000 mls @ 100 mls/hr IV ASDIRECTED HERMINIA Oxytocin/Lactated Ringer's (Pitocin In Lr 10 Units/1,000 Ml) 10 unit in 1,000 mls @ 500 mls/hr IV .CONTINUOUS HERMINIA Nalbuphine HCl (Nalbuphine 10 Mg/1 Ml Vial) 10 mg IVPUSH Q2H PRN PRN Reason: Pain Ondansetron HCl (Ondansetron 4 Mg/2 Ml Sdv) 4 mg IVPUSH Q4H PRN PRN Reason: Nausea/Vomiting Sodium Chloride (Sodium Chloride 0.9% 10 Ml Syringe) 10 ml FLUSH ASDIRECTED PRN PRN Reason: Keep Vein Open Assessment/Plan Comment:: Term labor. Progressing well. Does not desire pain management options. Anticipate spontaneous vaginal delivery. CBC, type and screen, covid testing on admission, monitor.
[2020-08-03] MEDS ORDERED: Oxytocin 10 Units/1 ML SDV ONE (03:38)
[2020-08-03] MEDS ORDERED: Lidocaine 1% 2 ML ONE (03:39)
--- NOTE | 2020-08-03 04:07 | PCM.SN.2 ---
- Free Text/Narrative Note: Stage I - Patient presented in active labor with SROM. Declined epidural. Progressed to complete with overall reassuring heart tones. Meconium stained fluid. Stage II - With pushing occasional maternal nausea/hypotension and heart rate decelerations but otherwise reassuring monitoring. of viable male, weight 7#6oz, 8/9 APGARS at 0334. Head delivered in controlled manner over intact perineum. Body and shoulders followed without difficulty. Baby placed on maternal abdomen. Positive cry. Cord clamped and cut and baby taken to warmer. Stage III - of intact placenta. 3vc. Pitocin 10 u IM given as patient pulled IV out inadvertently toward very end of pushing. Minimal bleeding. EBL 100. Small 1st degree laceration repaired in usual fashion with 3-0 vicryl.
[2020-08-03] MEDS ORDERED: Ibuprofen 600 MG Tab PO PRN (04:40)
[2020-08-03] MEDS ORDERED: Benzocaine/Menthol 20%-0.5% Spray 56 GM Canister TOP PRN (04:40)
[2020-08-03] MEDS: Witch Hazel Medicated Pads 40/Jar TOP PRN (05:48)
[2020-08-04] MEDS: Witch Hazel Medicated Pads 40/Jar TOP PRN (08:47)
--- NOTE | 2020-08-04 09:24 | PCM.DCSUM1 ---
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 Diagnosis: Stroke: No - Discharge Data Discharge Date: 08/04/20 Discharge Disposition: Home, Self-Care 01 Condition: Good - Referral to Home Health Primary Care Physician: Wendy Omer MD - Patient Summary/Data Consults: Consultations 08/03/20 11:52 Consult to Case Management/Stock Preparer [CONS] Routine - Patient Instructions Diet: Regular Diet as Tolerated (Nursing diet with increased calories and calcium as recommended) Activity: As Tolerated (No intercourse or tampons until bleeding resolves) Driving: May Drive Today Showering/Bathing: May Shower Showering/Bathing, Other: May take a bath Notify Provider of: Fever, Increased Pain, Swelling and Redness, Nausea and/or Vomiting - Discharge Plan Home Medications: Home Meds Acetaminophen [Tylenol Extra Strength] 500 mg PO DAILY 02/15/20 [History] Ibuprofen [Motrin] 600 mg PO Q6H PRN tablet 08/04/20 [Rx] Referrals: Wendy Omer MD [Primary Care Provider] - (Return to clinicDr. [facility]mer[facility] to call for a appointment.) - Discharge Summary/Plan Comment DC Time >30 min.: No Discharge Summary/Plan Comment: Discharge instructions: 1. Discharge home 2. Diet, activity and follow-up discussed with patient. Recommend nursing diet with increased calories and calcium. 3. Precautions given concern increased pain, bleeding, temperature, signs/sym ptoms of DVT/PE. 4. Medications per home medication was printed, discussed with and given to the patient. 5. [facility] for [facility] Diagnosis: Term -delivered Condition: Good - Patient Data Vitals - Most Recent: Last Vital Signs Temp 36.4 C 08/04/20 03:02 Pulse 83 08/04/20 03:02 Resp 15 08/04/20 03:02 BP 95/58 L 08/04/20 03:02 Pulse Ox 99 08/04/20 03:02 Weight - Most Recent: 70.579 kg I&O - Last 24 hours: Intake & Output 08/03/20 08/04/20 08/04/20 22:59 06:59 14:59 Intake Total 240 Balance 240 Lab Results - Last 24 hrs: Laboratory Results - last 24 hr 08/02/20 Range/Units 23:50 RPR Non-reactive (NONREACTIVE) Med Orders - Current: Current Medications Benzocaine/Menthol (Benzocaine/Menthol 20%-0.5% [place] 56 Gm Canister) 1 gm TOP ASDIRECTED PRN PRN Reason: Perineal Comfort Measure Last Admin: 08/03/20 05:48 Dose: 1 applic Documented by: Lactated Ringer's (Ringers, Lactated) 1,000 mls @ 100 mls/hr IV ASDIRECTED HERMINIA Oxytocin/Lactated Ringer's (Pitocin In Lr 10 Units/1,000 Ml) 10 unit in 1,000 mls @ 500 mls/hr IV .CONTINUOUS HERMINIA Ibuprofen (Ibuprofen 600 Mg Tab) 600 mg PO Q6H PRN PRN Reason: Pain (mild 1-3) Last Admin: 08/03/20 20:05 Dose: 600 mg Documented by: Nalbuphine HCl (Nalbuphine 10 Mg/1 Ml Vial) 10 mg IVPUSH Q2H PRN PRN Reason: Pain Ondansetron HCl (Ondansetron 4 Mg/2 Ml Sdv) 4 mg IVPUSH Q4H PRN PRN Reason: Nausea/Vomiting Sodium Chloride (Sodium Chloride 0.9% 10 Ml Syringe) 10 ml FLUSH ASDIRECTED PRN PRN Reason: Keep Vein Open Witch Vania (Witch Vania Medicated Pads 40/Jar) 1 pad TOP ASDIRECTED PRN PRN Reason: Perineal Comfort Measure Last Admin: 08/04/20 08:47 Dose: 1 tub Documented by: Discontinued Medications Lidocaine HCl (Xylocaine-Mpf 1%) Confirm Administered Dose 2 mls @ as directed .ROUTE .STK-MED ONE Stop: 08/03/20 03:40 Last Admin: 08/03/20 03:59 Dose: 2 mls/hr Documented by: Lidocaine HCl (Lidocaine 1% 50 Ml Mdv) 1 ml INJECT ONETIME ONE Stop: 08/02/20 23:35 Last Admin: 08/03/20 21:49 Dose: Not Given Documented by: Oxytocin (Oxytocin 10 Units/1 Ml Sdv) Confirm Administered Dose 10 unit .ROUTE .[facility]-MED ONE Stop: 08/03/20 03:39 Last Admin: 08/03/20 03:59 Dose: 10 unit Documented by:
== END 2020-08-04 11:30 | disposition home or self-care (01) | DRG 560 ==
LOC: JD.OBCHECK 22:56 → JD.OB 22:56 → JD.OBCHECK 23:40 → OBSVTOIN 08-03 03:34 → JD.OB 08-03 03:35
PROVIDERS: ADMIT Obstetrics & Gynecology; ATTEND Obstetrics & Gynecology
PROC: 10E0XZZ Delivery of Products of Conception, External Approach (ICD-10-PCS; principal; 2020-08-03)
PROC: 0HQ9XZZ Repair Perineum Skin, External Approach (ICD-10-PCS; 2020-08-03)
DX: O48.0 Post-term pregnancy (principal); Z3A.40 40 weeks gestation of pregnancy; Z37.0 Single live birth; Z87.891 Personal history of nicotine dependence; O77.0 Labor and delivery complicated by meconium in amniotic fluid; O76 Abnormality in fetal heart rate and rhythm complicating labor and delivery; O70.0 First degree perineal laceration during delivery; Z20.822 Contact with and (suspected) exposure to COVID-19
CPT/HCPCS: 36415; 59025; 59409; 80306; 85025; 86592; A9270-GY; J2590; U0002

== ENCOUNTER 2021-05-01 20:01 | Emergency (ER) | payer BC ==
[2021-05-01] MEDS ORDERED: Lidocaine 1% 10 ML MDV INJECT ONE (20:46)
== END 2021-05-01 21:25 | disposition home or self-care (01) ==
LOC: JD.ED 20:01
DX: S61.217A Laceration without foreign body of left little finger without damage to nail, initial encounter (principal); Z87.891 Personal history of nicotine dependence; W26.8XXA Contact with other sharp object(s), not elsewhere classified, initial encounter; Y99.0 Civilian activity done for income or pay
CPT/HCPCS: 12001; 12011; 99282; 99282-25

== ENCOUNTER 2022-02-03 21:37 | Emergency (ER) | payer BC ==
[2022-02-03] MEDS ORDERED: Ketorolac 60 MG/2 ML SDV IM ONE (22:10)
== END 2022-02-03 23:26 | disposition home or self-care (01) ==
LOC: JD.ED 21:37
DX: R07.89 Other chest pain (principal); Z87.891 Personal history of nicotine dependence
CPT/HCPCS: 36415; 71046; 80053; 84484; 85025; 85379; 93005; 96372; 99285; J1885

== ENCOUNTER 2023-04-11 20:19 | Emergency (ER) | payer SELFPAY ==
[2023-04-11 21:51] LABS: CORONAVIRUS COVID-19 NAA NEGATIVE (NEGATIVE); INFLUENZA A NAA POSITIVE (NEGATIVE)
[2023-04-11] MEDS ORDERED: Ibuprofen 600 MG Tab PO ONE (22:41)
[2023-04-11] MEDS ORDERED: Ondansetron 4 MG Tab.DIS PO ONE (22:41)
[2023-04-11] MEDS ORDERED: Acetaminophen 325 MG Tab PO ONE (22:42)
== END 2023-04-12 | disposition home or self-care (01) ==
LOC: JD.ED 20:19
DX: J10.1 Influenza due to other identified influenza virus with other respiratory manifestations (principal); Z20.822 Contact with and (suspected) exposure to COVID-19
CPT/HCPCS: 0240U; 99284; A9270

== ENCOUNTER 2024-02-17 21:16 | Emergency (ER) | payer SELFPAY ==
[2024-02-17] MEDS: Ondansetron 4 MG/2 ML SDV IVPUSH ONE (22:39)
[2024-02-17] MEDS: Sodium Chloride 0.9% 1,000 ML IV SCH (22:39)
[2024-02-17 22:41] LABS: BASOPHILS PERCENT AUTO 0.4 % (0.0-1.0); EOSINOPHILS ABSOLUTE AUTO 0.1 K/mm3 (0.0-0.4); EOSINOPHILS PERCENT AUTO 1.2 % (0.0-6.0); HEMATOCRIT 44.4 % (37.0-47.0); HEMOGLOBIN 15.2 gm/dl (12.0-16.0); IMMATURE GRAN ABSOLUTE AUTO 0.03 K/mm3 (0.00-0.05); IMMATURE GRAN PERCENT AUTO 0.3 % (0.0-0.4); LYMPHOCYTES ABSOLUTE AUTO 2.1 K/mm3 (1.0-4.8); LYMPHOCYTES PERCENT AUTO 18.6 % (24.0-44.0); MEAN CORPUSCULAR HEMOGLOBIN 28.5 pg (28.0-32.0); MEAN CORPUSCULAR HGB CONC 34.2 g/dl (32.0-36.0); MEAN CORPUSCULAR VOLUME 83.1 fl (83.0-99.0); MEAN PLATELET VOLUME 9.8 fl (9.4-12.3); MONOCYTES ABSOLUTE AUTO 0.8 K/mm3 (0.0-0.8); NEUTROPHILS ABSOLUTE AUTO 8.2 K/mm3 (1.8-7.7); NEUTROPHILS PERCENT AUTO 72.5 % (41.0-71.0); PLATELET COUNT,PLT 269 K/mm3 (150-400); RED BLOOD CELL COUNT 5.34 M/mm3 (4.10-5.30); WHITE BLOOD CELL COUNT,WBC 11.25 K/mm3 (3.9-11.3)
[2024-02-17] MEDS: Sodium Chloride 0.9% 10 ML Syringe FLUSH PRN (22:41)
[2024-02-17 23:02] LABS: A/G RATIO 0.9 (1-2); ALBUMIN 3.7 g/dl (3.4-5.0); ANION GAP 13.4 (5-15); BILIRUBIN TOTAL 0.7 mg/dL (0.2-1.0); CALCIUM 9.3 mg/dL (8.5-10.1); CREATININE 0.8 mg/dL (0.55-1.02); EST CRCL DRUG DOSING (CG) 95.89 mL/min; POTASSIUM,K 3.4 mEq/L (3.5-5.1); PROTEIN TOTAL,TP 7.7 g/dl (6.4-8.2)
[2024-02-17] MEDS: Dextrose 5%-Lactated Ringers 1,000 ML IV SCH (23:42)
== END 2024-02-18 01:42 | disposition home or self-care (01) ==
LOC: JD.ED 21:16
DX: O21.9 Vomiting of pregnancy, unspecified (principal); Z3A.01 Less than 8 weeks gestation of pregnancy
CPT/HCPCS: 36415; 80053; 85025; 96361; 96374; 99284; J2405; J3490; J7030; J7121

== ENCOUNTER 2024-09-12 15:03 | Emergency (ER) | payer MEDICAID ==
[2024-09-12] MEDS ORDERED: Sodium Chloride 0.9% 10 ML Syringe FLUSH PRN (15:17)
[2024-09-12 15:33] LABS: BASOPHILS ABSOLUTE AUTO 0.1 K/mm3 (0.0-0.2); BASOPHILS PERCENT AUTO 0.4 % (0.0-1.0); EOSINOPHILS PERCENT AUTO 0.2 % (0.0-6.0); HEMATOCRIT 46.3 % (37.0-47.0); IMMATURE GRAN ABSOLUTE AUTO 0.02 K/mm3 (0.00-0.05); IMMATURE GRAN PERCENT AUTO 0.2 % (0.0-0.4); LYMPHOCYTES ABSOLUTE AUTO 2.6 K/mm3 (1.0-4.8); LYMPHOCYTES PERCENT AUTO 22.9 % (24.0-44.0); MEAN CORPUSCULAR HEMOGLOBIN 28.7 pg (28.0-32.0); MEAN CORPUSCULAR HGB CONC 34.6 g/dl (32.0-36.0); MEAN PLATELET VOLUME 10.8 fl (9.4-12.3); MONOCYTES ABSOLUTE AUTO 1.1 K/mm3 (0.0-0.8); MONOCYTES PERCENT AUTO 9.4 % (0.0-8.0); NEUTROPHILS ABSOLUTE AUTO 7.5 K/mm3 (1.8-7.7); NEUTROPHILS PERCENT AUTO 66.9 % (41.0-71.0); PLATELET COUNT,PLT 313 K/mm3 (150-400); RED BLOOD CELL COUNT 5.58 M/mm3 (4.10-5.30); WHITE BLOOD CELL COUNT,WBC 11.18 K/mm3 (3.9-11.3)
[2024-09-12] MEDS: Ondansetron 4 MG/2 ML SDV IVPUSH ONE (15:37)
[2024-09-12] MEDS: Sodium Chloride 0.9% 1,000 ML IV STA (15:37)
[2024-09-12 15:48] LABS: ALBUMIN 4.1 g/dl (3.4-5.0); ANION GAP 17.5 (5-15); BUN/CREATININE RATIO 8.9 (14-18); CALCIUM 9.7 mg/dL (8.5-10.1); CREATININE 0.9 mg/dL (0.55-1.02); EST CRCL DRUG DOSING (CG) 84.49 mL/min; POTASSIUM,K 3.5 mEq/L (3.5-5.1); PROTEIN TOTAL,TP 8.2 g/dl (6.4-8.2)
[2024-09-12 15:49] LABS: BILIRUBIN TOTAL 0.9 mg/dL (0.2-1.0)
[2024-09-12 17:18] LABS: APPEARANCE,URINE CLEAR (Clear); BILIRUBIN,URINE 1+ (Negative); COLOR,URINE YELLOW (Yellow); GLUCOSE,URINE NEGATIVE (Negative); KETONES,URINE 4+ (Negative); LEUKOCYTE ESTERASE,URINE TRACE (Negative); NITRITE,URINE NEGATIVE (Negative); OCCULT BLOOD,URINE NEGATIVE (Negative); PH,URINE 6.5 (5.0-8.0); PROTEIN,URINE TRACE (Negative)
[2024-09-12 17:31] LABS: BACTERIA,URINE FEW /hpf (FEW); MUCUS,URINE MODERATE /hpf (FEW); RBC,URINE 0-5 /hpf (0-5)
== END 2024-09-12 18:03 | disposition home or self-care (01) ==
LOC: JD.ED 15:03
DX: O21.9 Vomiting of pregnancy, unspecified (principal); Z3A.00 Weeks of gestation of pregnancy not specified
CPT/HCPCS: 36415; 80053; 81001; 84702; 85025; 87086; 96361; 96374; 99284; J2405; J7030

== ENCOUNTER 2024-09-22 14:56 | Emergency (ER) | payer SELFPAY ==
[2024-09-22] MEDS ORDERED: Sodium Chloride 0.9% 10 ML Syringe FLUSH PRN (15:17)
[2024-09-22 15:46] LABS: BASOPHILS PERCENT AUTO 0.2 % (0.0-1.0); EOSINOPHILS PERCENT AUTO 0.1 % (0.0-6.0); HEMATOCRIT 47.6 % (37.0-47.0); HEMOGLOBIN 16.6 gm/dl (12.0-16.0); IMMATURE GRAN ABSOLUTE AUTO 0.04 K/mm3 (0.00-0.05); IMMATURE GRAN PERCENT AUTO 0.3 % (0.0-0.4); LYMPHOCYTES ABSOLUTE AUTO 1.6 K/mm3 (1.0-4.8); LYMPHOCYTES PERCENT AUTO 12.5 % (24.0-44.0); MEAN CORPUSCULAR HEMOGLOBIN 28.4 pg (28.0-32.0); MEAN CORPUSCULAR HGB CONC 34.9 g/dl (32.0-36.0); MEAN CORPUSCULAR VOLUME 81.5 fl (83.0-99.0); MEAN PLATELET VOLUME 10.5 fl (9.4-12.3); MONOCYTES ABSOLUTE AUTO 1.1 K/mm3 (0.0-0.8); MONOCYTES PERCENT AUTO 8.2 % (0.0-8.0); NEUTROPHILS ABSOLUTE AUTO 10.1 K/mm3 (1.8-7.7); NEUTROPHILS PERCENT AUTO 78.7 % (41.0-71.0); PLATELET COUNT,PLT 322 K/mm3 (150-400); RED BLOOD CELL COUNT 5.84 M/mm3 (4.10-5.30); WHITE BLOOD CELL COUNT,WBC 12.85 K/mm3 (3.9-11.3)
[2024-09-22] MEDS: Metoclopramide 10 MG/2 ML SDV IVPUSH ONE (15:53)
[2024-09-22] MEDS: Famotidine 20 MG/2 ML SDV IVPUSH STA (15:55)
[2024-09-22] MEDS: diphenhydrAMINE 50 MG/ML SDV IVPUSH ONE (15:58)
[2024-09-22] MEDS: Lactated Ringers 1,000 ML IV ONE ×2 (16:02→17:06)
[2024-09-22 16:12] LABS: A/G RATIO 0.9 (1-2); ALBUMIN 4.1 g/dl (3.4-5.0); ANION GAP 22.3 (5-15); BILIRUBIN TOTAL 0.9 mg/dL (0.2-1.0); CALCIUM 10.1 mg/dL (8.5-10.1); EST CRCL DRUG DOSING (CG) 76.04 mL/min; POTASSIUM,K 3.3 mEq/L (3.5-5.1); PROTEIN TOTAL,TP 8.5 g/dl (6.4-8.2)
[2024-09-22 17:42] LABS: APPEARANCE,URINE CLEAR (Clear); BILIRUBIN,URINE 1+ (Negative); COLOR,URINE YELLOW (Yellow); GLUCOSE,URINE NEGATIVE (Negative); KETONES,URINE 4+ (Negative); LEUKOCYTE ESTERASE,URINE NEGATIVE (Negative); NITRITE,URINE NEGATIVE (Negative); OCCULT BLOOD,URINE NEGATIVE (Negative); PH,URINE 5.5 (5.0-8.0); PROTEIN,URINE 2+ (Negative); UROBILINOGEN,URINE 0.2 (0.2-1.0)
[2024-09-22 17:53] LABS: RBC,URINE 0-5 /hpf (0-5); WBC,URINE 0-5 /hpf (0-5)
[2024-09-22 17:54] LABS: BACTERIA,URINE MODERATE /hpf (FEW); MUCUS,URINE MANY /hpf (FEW)
[2024-09-22] MEDS: Ondansetron 4 MG Tab.DIS PO ONE (18:27)
== END 2024-09-22 18:30 | disposition home or self-care (01) ==
LOC: JD.ED 14:56
DX: O21.9 Vomiting of pregnancy, unspecified (principal); Z3A.08 8 weeks gestation of pregnancy
CPT/HCPCS: 36415; 80053; 81001; 84702; 85025; 96361; 96374; 96375; 99284; A9270; J1200; J2765; J7120; 99283

== ENCOUNTER 2024-10-01 10:55 | Emergency (ER) | payer SELFPAY ==
[2024-10-01 11:56] LABS: BASOPHILS PERCENT AUTO 0.3 % (0.0-1.0); EOSINOPHILS PERCENT AUTO 0.2 % (0.0-6.0); HEMOGLOBIN 16.2 gm/dl (12.0-16.0); IMMATURE GRAN ABSOLUTE AUTO 0.04 K/mm3 (0.00-0.05); IMMATURE GRAN PERCENT AUTO 0.4 % (0.0-0.4); LYMPHOCYTES ABSOLUTE AUTO 2.1 K/mm3 (1.0-4.8); LYMPHOCYTES PERCENT AUTO 19.5 % (24.0-44.0); MEAN CORPUSCULAR HEMOGLOBIN 28.3 pg (28.0-32.0); MEAN CORPUSCULAR HGB CONC 34.5 g/dl (32.0-36.0); MEAN CORPUSCULAR VOLUME 82.2 fl (83.0-99.0); MEAN PLATELET VOLUME 10.8 fl (9.4-12.3); MONOCYTES PERCENT AUTO 9.3 % (0.0-8.0); NEUTROPHILS ABSOLUTE AUTO 7.7 K/mm3 (1.8-7.7); NEUTROPHILS PERCENT AUTO 70.3 % (41.0-71.0); PLATELET COUNT,PLT 263 K/mm3 (150-400); RED BLOOD CELL COUNT 5.72 M/mm3 (4.10-5.30); WHITE BLOOD CELL COUNT,WBC 10.87 K/mm3 (3.9-11.3)
[2024-10-01] MEDS: Metoclopramide 10 MG/2 ML SDV IVPUSH ONE (12:21)
[2024-10-01] MEDS: diphenhydrAMINE 50 MG/ML SDV IVPUSH ONE (12:23)
[2024-10-01 12:24] LABS: A/G RATIO 0.8 (1-2); ALBUMIN 3.5 g/dl (3.4-5.0); ANION GAP 17.5 (5-15); BILIRUBIN TOTAL 0.8 mg/dL (0.2-1.0); CALCIUM 9.9 mg/dL (8.5-10.1); CREATININE 0.8 mg/dL (0.55-1.02); EST CRCL DRUG DOSING (CG) 95.05 mL/min; POTASSIUM,K 3.5 mEq/L (3.5-5.1); PROTEIN TOTAL,TP 8.1 g/dl (6.4-8.2)
[2024-10-01] MEDS: Lactated Ringers 1,000 ML IV ONE (12:25)
[2024-10-01 12:44] LABS: APPEARANCE,URINE CLEAR (Clear); BILIRUBIN,URINE 2+ (Negative); COLOR,URINE YELLOW (Yellow); GLUCOSE,URINE NEGATIVE (Negative); KETONES,URINE 3+ (Negative); LEUKOCYTE ESTERASE,URINE TRACE (Negative); NITRITE,URINE NEGATIVE (Negative); OCCULT BLOOD,URINE NEGATIVE (Negative); PH,URINE 5.5 (5.0-8.0); PROTEIN,URINE 2+ (Negative)
[2024-10-01 12:56] LABS: BACTERIA,URINE FEW /hpf (FEW); MUCUS,URINE MANY /hpf (FEW); RBC,URINE 0-5 /hpf (0-5)
[2024-10-01] MEDS: Ondansetron 4 MG/2 ML SDV IVPUSH ONE (13:29)
[2024-10-01] MEDS: Sodium Chloride 0.9% 1,000 ML IV SCH (14:06)
== END 2024-10-01 15:17 | disposition home or self-care (01) ==
LOC: JD.ED 10:55
DX: O21.9 Vomiting of pregnancy, unspecified (principal); Z3A.10 10 weeks gestation of pregnancy
CPT/HCPCS: 36415; 76817; 80053; 81001; 83735; 84702; 85025; 87086; 96361; 96374; 96375; 99284; J1200; J2405; J2765; J7030; J7120

== ENCOUNTER 2024-10-11 13:40 | Emergency (ER) | payer SELFPAY ==
[2024-10-11 14:14] LABS: BASOPHILS PERCENT AUTO 0.2 % (0.0-1.0); EOSINOPHILS PERCENT AUTO 0.1 % (0.0-6.0); IMMATURE GRAN ABSOLUTE AUTO 0.03 K/mm3 (0.00-0.05); IMMATURE GRAN PERCENT AUTO 0.3 % (0.0-0.4); LYMPHOCYTES ABSOLUTE AUTO 1.4 K/mm3 (1.0-4.8); MEAN CORPUSCULAR HEMOGLOBIN 28.2 pg (28.0-32.0); MEAN CORPUSCULAR HGB CONC 34.1 g/dl (32.0-36.0); MEAN CORPUSCULAR VOLUME 82.7 fl (83.0-99.0); MEAN PLATELET VOLUME 10.7 fl (9.4-12.3); MONOCYTES ABSOLUTE AUTO 0.6 K/mm3 (0.0-0.8); MONOCYTES PERCENT AUTO 5.6 % (0.0-8.0); NEUTROPHILS ABSOLUTE AUTO 8.5 K/mm3 (1.8-7.7); NEUTROPHILS PERCENT AUTO 80.8 % (41.0-71.0); PLATELET COUNT,PLT 278 K/mm3 (150-400); RED BLOOD CELL COUNT 5.32 M/mm3 (4.10-5.30); WHITE BLOOD CELL COUNT,WBC 10.47 K/mm3 (3.9-11.3)
[2024-10-11 14:42] LABS: A/G RATIO 0.8 (1-2); ALBUMIN 3.5 g/dl (3.4-5.0); ANION GAP 13.8 (5-15); BILIRUBIN TOTAL 0.5 mg/dL (0.2-1.0); BUN/CREATININE RATIO 12.9 (14-18); CALCIUM 10.1 mg/dL (8.5-10.1); CREATININE 0.7 mg/dL (0.55-1.02); EST CRCL DRUG DOSING (CG) 108.63 mL/min; POTASSIUM,K 3.8 mEq/L (3.5-5.1); PROTEIN TOTAL,TP 7.7 g/dl (6.4-8.2)
[2024-10-11] MEDS: Sodium Chloride 0.9% 1,000 ML IV ONE (14:54)
[2024-10-11] MEDS: Ondansetron 4 MG/2 ML SDV IVPUSH ONE (14:55)
[2024-10-11] MEDS: Acetaminophen 325 MG Tab PO ONE (15:31)
[2024-10-11 15:48] LABS: APPEARANCE,URINE SLT CLOUDY (Clear); BILIRUBIN,URINE 1+ (Negative); GLUCOSE,URINE NEGATIVE (Negative); KETONES,URINE 4+ (Negative); LEUKOCYTE ESTERASE,URINE 1+ (Negative); NITRITE,URINE NEGATIVE (Negative); OCCULT BLOOD,URINE NEGATIVE (Negative); PH,URINE 8.5 (5.0-8.0); PROTEIN,URINE 2+ (Negative); UROBILINOGEN,URINE 0.2 (0.2-1.0)
[2024-10-11] MEDS: Metoclopramide 10 MG Tab PO ONE (16:15)
[2024-10-11 16:35] LABS: COLOR,URINE YELLOW (Yellow)
[2024-10-11 16:36] LABS: BACTERIA,URINE MODERATE /hpf (FEW); MUCUS,URINE FEW /hpf (FEW); RBC,URINE 0-5 /hpf (0-5)
== END 2024-10-11 16:29 | disposition home or self-care (01) ==
LOC: JD.ED 13:40
DX: O21.9 Vomiting of pregnancy, unspecified (principal); Z79.899 Other long term (current) drug therapy
CPT/HCPCS: 36415; 76705; 76815; 80053; 81001; 83735; 84702; 85025; 87086; 96361; 96374; 99284; A9270; J2405; J7030